=== PATIENT | male | born 1945 | race Caucasian/White ===

== ENCOUNTER 2024-08-04 13:32 | Inpatient (IN) | payer MEDICARE ==
[~2024-08-04] VITALS: Ht 165.1 cm; Wt 77.3 kg
[2024-08-04] MEDS ORDERED: INSU100I4 SQ ×2 (13:59)
[2024-08-04] MEDS ORDERED: SENN8.6T19 PO (13:59)
[2024-08-04] MEDS ORDERED: MECL-159 PO (13:59)
[2024-08-04] MEDS ORDERED: ROSU20TA2 PO (13:59)
[2024-08-04] MEDS ORDERED: POLY17PO4 PO (13:59)
[2024-08-04] MEDS ORDERED: RIVA10TA PO (13:59)
[2024-08-04] MEDS ORDERED: HYDR500C2 PO (13:59)
[2024-08-04] MEDS ORDERED: METF-440 PO (13:59)
[2024-08-04] MEDS ORDERED: EMPA25TA PO (13:59)
[2024-08-04] MEDS ORDERED: CALC0.253 PO (13:59)
[2024-08-04] MEDS ORDERED: ACET-868 PO (13:59)
[2024-08-04] MEDS ORDERED: VALS80TA31 PO (13:59)
[2024-08-04] MEDS ORDERED: METO-357 PO (13:59)
[2024-08-04] MEDS ORDERED: INSU100V7 SQ (13:59)
[2024-08-04] MEDS ORDERED: LEVO25TA7 PO (13:59)
[2024-08-04 14:12] LABS: CALCIUM, SERUM 9.3 mg/dL (8.5-10.1); CARBON DIOXIDE 27 mmol/L (21-32); CHLORIDE 95 mmol/L (98-107); CREATININE 1.3 mg/dL (0.6-1.3); GLUCOSE 343 mg/dL (74-106); POTASSIUM 5.4 mmol/L (3.5-5.1); SODIUM SERUM 132 mmol/L (136-145); UREA NITROGEN, BLOOD 23 mg/dL (7-18)
[2024-08-04 14:13] LABS: BASOPHILS # (AUTO) 0.1 K/uL (0.0-0.2); BASOPHILS % (AUTO) 1.1 % (0.0-2.0); EOSINOPHILS # (AUTO) 0.2 K/uL (0.0-0.7); EOSINOPHILS % (AUTO) 1.6 % (0.0-6.0); HEMATOCRIT 57 % (39-51); HEMOGLOBIN 18.4 g/dL (13.5-17.5); LYMPHOCYTES % (AUTO) 7.7 % (20.0-44.0); MEAN CORPUSCULAR HEMOGLOBIN 29 PG (26.0-33.0); MEAN CORPUSCULAR HGB CONC 32 g/dl (31.0-36.0); MEAN CORPUSCULAR VOLUME 90 fL (80-96); MONOCYTES # (AUTO) 0.7 K/uL (0.1-1.30); MONOCYTES % (AUTO) 5.6 % (2.0-12.0); NEUTROPHILS # (AUTO) 10.7 K/uL (1.8-8.9); PLATELET COUNT (AUTO) 565 K/uL (150-450); RED BLOOD CELL COUNT(AUTO) 6.34 MIL/uL (4.5-6.0); WHITE BLOOD COUNT (AUTO) 12.7 K/uL (4.3-11.0)
[2024-08-04] MEDS ORDERED: ASPIRIN 325 MG TABLET ONE (14:27)
[2024-08-04] MEDS: ASPIRIN 81 MG TAB.CHEW PO ONE (14:30)
[2024-08-04 16:00] VITALS: BP 100/58; TEMP 97.9; O2SAT 93
[2024-08-04] MEDS ORDERED: MECLIZINE HCL 25 MG TABLET PO PRN (16:00)
[2024-08-04] MEDS ORDERED: ONDANSETRON HCL/PF 4 MG/2 ML VIAL IVP PRN (16:00)
[2024-08-04] MEDS: ONDANSETRON HCL/PF 4 MG/2 ML VIAL IV ONE (16:00)
[2024-08-04] MEDS: MORPHINE SULFATE INJ 2 MG/ML DISP.SYRIN IV ONE (16:00)
[2024-08-04] MEDS ORDERED: ONDANSETRON HCL/PF 4 MG/2 ML VIAL ONE (16:11)
[2024-08-04] MEDS ORDERED: MORPHINE SULFATE INJ 4 MG/ML DISP.SYRIN ONE (16:11)
[2024-08-04] MEDS: METOPROLOL SUCCINATE 50 MG TAB.SR.24H PO SCH (17:00)
[2024-08-04] MEDS: METFORMIN 500 MG TABLET PO SCH (17:13)
[2024-08-04] MEDS: HYDROCODONE/APAP 10/325MG TABLET PO PRN (17:27)
[2024-08-04] MEDS: IV NS 0.9% 500 ML IV ONE (18:05)
[2024-08-04] MEDS: INSULIN LISPRO/ASPART 100 UNIT/ML CARTRIDGE SQ SCH (18:31)
[2024-08-04] MEDS: Z GUARD REMEDY 4 OZ OINT TP PRN (18:44)
[2024-08-04] MEDS: IV NS 0.9% 1,000 ML IV PRN (18:59)
[2024-08-04] MEDS: MORPHINE SULFATE INJ 2 MG/ML DISP.SYRIN IV STA (19:41)
[2024-08-04 20:00] VITALS: BP 91/57; TEMP 97.9; O2SAT 96
[2024-08-04] MEDS: ATORVASTATIN 40 MG TABLET PO SCH (22:15)
[2024-08-04] MEDS: INSULIN GLARGINE, 100 UNIT/ML CARTRIDGE SQ SCH (22:23)
[2024-08-05] VITALS: BP_SYST 94; BP_SYST 99; BP_DIAS 57; TEMP 97.5; O2SAT 94
[2024-08-05 04:00] VITALS: BP 95/69; TEMP 97.7; O2SAT 94
[2024-08-05] MEDS: MORPHINE SULFATE INJ 2 MG/ML DISP.SYRIN IV ONE (05:35)
[2024-08-05] MEDS: BLOOD SUGAR DIAGNOSTIC 1 EACH STRIP IN SCH (06:30)
[2024-08-05 06:51] LABS: BASOPHILS # (AUTO) 0.1 K/uL (0.0-0.2); BASOPHILS % (AUTO) 0.5 % (0.0-2.0); EOSINOPHILS # (AUTO) 0.1 K/uL (0.0-0.7); EOSINOPHILS % (AUTO) 0.5 % (0.0-6.0); HEMATOCRIT 47 % (39-51); HEMOGLOBIN 14.7 g/dL (13.5-17.5); LYMPHOCYTES # (AUTO) 0.7 K/uL (0.8-4.8); LYMPHOCYTES % (AUTO) 4.4 % (20.0-44.0); MEAN CORPUSCULAR HEMOGLOBIN 29 PG (26.0-33.0); MEAN CORPUSCULAR HGB CONC 31 g/dl (31.0-36.0); MEAN CORPUSCULAR VOLUME 92 fL (80-96); MONOCYTES # (AUTO) 0.9 K/uL (0.1-1.30); MONOCYTES % (AUTO) 5.7 % (2.0-12.0); NEUTROPHILS # (AUTO) 14.3 K/uL (1.8-8.9); NEUTROPHILS % (AUTO) 88.9 % (43.0-81.0); PLATELET COUNT (AUTO) 513 K/uL (150-450); RED BLOOD CELL COUNT(AUTO) 5.08 MIL/uL (4.5-6.0); WHITE BLOOD COUNT (AUTO) 16.1 K/uL (4.3-11.0)
[2024-08-05 07:27] LABS: CARBON DIOXIDE 24 mmol/L (21-32); CHLORIDE 98 mmol/L (98-107); CREATININE 1.1 mg/dL (0.6-1.3); GLUCOSE 256 mg/dL (74-106); MAGNESIUM 1.9 mg/dL (1.8-2.4); PHOSPHORUS 3.3 mg/dL (2.5-4.9); POTASSIUM 5.5 mmol/L (3.5-5.1); SODIUM SERUM 131 mmol/L (136-145); UREA NITROGEN, BLOOD 24 mg/dL (7-18)
[2024-08-05 07:35] LABS: CHOLESTEROL 91 mg/dL (<200); HDL CHOLESTEROL 29 mg/dL (40-60); LDL 50 mg/dL (0-99); TRIGLYCERIDES 118 mg/dL (30-150)
[2024-08-05] MEDS: PANTOPRAZOLE 40 MG TABLET.DR PO SCH (08:33)
[2024-08-05] MEDS: LEVOTHYROXINE SODIUM 25 MCG TABLET PO SCH (08:33)
[2024-08-05] MEDS: EMPAGLIFLOZIN 25 MG TABLET PO SCH (08:34)
[2024-08-05] MEDS: SENNOSIDES 8.6 MG TABLET PO SCH (08:34)
[2024-08-05] MEDS: VALSARTAN 80 MG TABLET PO SCH (08:35)
[2024-08-05] MEDS: CALCITRIOL 0.25 MCG CAPSULE PO SCH (08:35)
[2024-08-05] MEDS: HYDROXYUREA 500 MG CAPSULE PO SCH (08:35)
[2024-08-05] MEDS ORDERED: RIVAROXABAN 10 MG TABLET PO SCH (09:00)
[2024-08-05] MEDS: ACETAMINOPHEN 325 MG TABLET PO PRN (11:57)
[2024-08-05] MEDS ORDERED: oxyCODONE HCL SR 10MG TAB.SR.12H PO PRN (15:00)
[2024-08-05] MEDS ORDERED: NALOXONE HCL 0.4 MG/ML AMPUL IV PRN (15:00)
[2024-08-05] MEDS ORDERED: oxyCODONE IR immediate release 5 MG TABLET PO PRN (15:00)
[2024-08-05] MEDS: GABAPENTIN 100 MG CAPSULE PO SCH (15:06)
[2024-08-05] MEDS: CELECOXIB 100 MG CAPSULE PO SCH (15:07)
[2024-08-05 20:00] VITALS: BP 113/85; TEMP 98.2; O2SAT 94
[2024-08-06] VITALS: BP 112/67; TEMP 97.7; O2SAT 98
[2024-08-06 04:00] VITALS: BP 114/93; TEMP 97.7; O2SAT 97
[2024-08-06 07:24] LABS: BASOPHILS # (AUTO) 0.1 K/uL (0.0-0.2); BASOPHILS % (AUTO) 0.7 % (0.0-2.0); EOSINOPHILS # (AUTO) 0.1 K/uL (0.0-0.7); EOSINOPHILS % (AUTO) 0.5 % (0.0-6.0); HEMATOCRIT 42 % (39-51); HEMOGLOBIN 13.7 g/dL (13.5-17.5); LYMPHOCYTES # (AUTO) 0.7 K/uL (0.8-4.8); MEAN CORPUSCULAR HEMOGLOBIN 29 PG (26.0-33.0); MEAN CORPUSCULAR HGB CONC 33 g/dl (31.0-36.0); MEAN CORPUSCULAR VOLUME 90 fL (80-96); MONOCYTES # (AUTO) 1.1 K/uL (0.1-1.30); NEUTROPHILS # (AUTO) 12.1 K/uL (1.8-8.9); NEUTROPHILS % (AUTO) 85.8 % (43.0-81.0); PLATELET COUNT (AUTO) 647 K/uL (150-450); RED BLOOD CELL COUNT(AUTO) 4.69 MIL/uL (4.5-6.0); RED CELL DISTRIBUTION WIDTH 16.8 % (11.5-15.0); WHITE BLOOD COUNT (AUTO) 14.2 K/uL (4.3-11.0)
[2024-08-06 07:30] VITALS: BP 116/66; TEMP 98.2; O2SAT 93
[2024-08-06 08:28] LABS: ALANINE AMINOTRANSFERASE < 6 U/L (12-78); ALBUMIN 2.9 g/dL (3.4-5.0); ALKALINE PHOSPHATASE 74 U/L (46-116); ASPARTATE AMINOTRANSFERASE 11 U/L (15-37); BILIRUBIN,TOTAL 1.3 mg/dL (0.2-1.0); CALCIUM, SERUM 8.7 mg/dL (8.5-10.1); CARBON DIOXIDE 23 mmol/L (21-32); CHLORIDE 102 mmol/L (98-107); CREATININE 1.2 mg/dL (0.6-1.3); GLUCOSE 189 mg/dL (74-106); MAGNESIUM 2.1 mg/dL (1.8-2.4); PHOSPHORUS 3.5 mg/dL (2.5-4.9); POTASSIUM 4.6 mmol/L (3.5-5.1); SODIUM SERUM 137 mmol/L (136-145); TOTAL PROTEIN, SERUM 5.8 g/dL (6.4-8.2); UREA NITROGEN, BLOOD 24 mg/dL (7-18)
[2024-08-06 08:51] VITALS: BP 116/66
[2024-08-06] MEDS ORDERED: CEPH-570 PO (11:13)
[2024-08-06] MEDS ORDERED: RIVA10TA PO (11:13)
[2024-08-06] MEDS ORDERED: GABA-532 PO (11:15)
[2024-08-06] MEDS ORDERED: CELE100C PO (11:15)
== END 2024-08-06 15:02 | disposition home health service (06) | DRG 640 ==
LOC: ER 13:35 → TELE 15:48
PROVIDERS: ADMIT Nurse Practitioner Acute Care; ATTEND Nurse Practitioner Acute Care
DX: E86.0 Dehydration (principal); I21.A1 Myocardial infarction type 2; J98.11 Atelectasis; I48.0 Paroxysmal atrial fibrillation; E87.1 Hypo-osmolality and hyponatremia; I10 Essential (primary) hypertension; I25.10 Atherosclerotic heart disease of native coronary artery without angina pectoris; E03.9 Hypothyroidism, unspecified; Z79.4 Long term (current) use of insulin; E78.5 Hyperlipidemia, unspecified; Z79.890 Hormone replacement therapy; Z79.899 Other long term (current) drug therapy; Z79.84 Long term (current) use of oral hypoglycemic drugs; Z79.01 Long term (current) use of anticoagulants; S20.212A Contusion of left front wall of thorax, initial encounter; X58.XXXA Exposure to other specified factors, initial encounter; Y92.099 Unspecified place in other non-institutional residence as the place of occurrence of the external cause; E87.5 Hyperkalemia; D72.829 Elevated white blood cell count, unspecified; D75.839 Thrombocytosis, unspecified; E86.1 Hypovolemia; E11.65 Type 2 diabetes mellitus with hyperglycemia; D45 Polycythemia vera; T46.5X5A Adverse effect of other antihypertensive drugs, initial encounter; Y92.9 Unspecified place or not applicable; J98.6 Disorders of diaphragm
CPT/HCPCS: 36415; 70450-TC; 71045-TC; 71250-TC; 80048-TC; 80053-TC; 80061-TC; 82962-TC; 83735-TC; 84100-TC; 84484-TC; 85025-TC; 87081-TC; 93307-TC; 97530-TC; 97535-TC; A4223; G0378; J1815; J2270; J2405; J7030; J7040